=== PATIENT | male | born 1960 | race Caucasian/White ===

== ENCOUNTER 2019-03-27 13:46 | Emergency (ER) | payer OTHER, SELFPAY ==
[2019-03-27] MEDS ORDERED: Ibuprofen 800 MG TAB ONE (14:10)
--- NOTE | 2019-03-27 14:42 | RAD ---
Left wrist 2 views HISTORY: Left wrist injury. FINDINGS: Multiple oblique views are included on this exam. The true frontal and lateral evaluation o f the wrist is better seen on the hand exam performed at the same time. Small subcortical cyst is noted at the base of the ulnar styloid. No acute fracture, dislocation, or aggressive osseous erosions. IMPRESSION: No acute osseous abnormalities are demonstrated.
--- NOTE | 2019-03-27 15:01 | RAD ---
LEFT HAND 3 VIEWS: HISTORY: Left hand injury with swelling and pain. FINDINGS: There is soft tissue swelling, particularly dorsally at the hand, particularly the region of the meta carpals. No evidence for acute fracture or dislocation. Small probable exostosis of the radial aspe ct of the base of the proximal phalanx of the 4th finger which appears somewhat more prominent in siz e when compared to the 11/29/2007 study. No acute fracture or dislocation. IMPRESSION: Dorsal soft tissue swelling. No acute fracture or dislocation. Other findings as above. POS: EMELY
== END 2019-03-27 15:12 | disposition home or self-care (01) ==
LOC: NAV ERS 13:46
DX: S63.92XA Sprain of unspecified part of left wrist and hand, initial encounter (principal); F32.9 Major depressive disorder, single episode, unspecified; I10 Essential (primary) hypertension; W01.0XXA Fall on same level from slipping, tripping and stumbling without subsequent striking against object, initial encounter
CPT/HCPCS: 29125

== ENCOUNTER 2022-11-14 09:11 | Emergency (ER) | payer OTHER ==
[~2022-11-14 09:11] MED LIST: Iopamidol 370 76% 100 ML VIAL ONE
[2022-11-14 10:01] LABS: #Eosinphils 0.1 thou/uL (0.0-0.7); #Lymphocytes 1.3 thou/uL (1.20-3.40); #Monocytes 1.1 thou/uL (0.11-0.59); #Neutrophils 9.5 thou/uL (1.40-6.50); %Basophils 0.3 % (0.0-1.0); %Eosinophils 0.6 % (0.0-10.0); %Lymphocytes 10.5 % (21.0-51.0); %Neutrophils 79.6 % (42.0-75.0); Hematocrit 42.8 % (42.0-52.0); Hemoglobin 14.4 g/dL (14.0-18.0); Mean Corpuscular HGB CONC 33.6 g/dL (32.0-36.0); Mean Corpuscular Hemoglobin 32.7 pg (27.0-31.0); Mean Corpuscular Volume 97.5 fl (78.0-98.0); Platelet Count 216 10x3/uL (130-400); RBC Distribution Width 11.8 % (11.5-14.5); Red Blood Cell (RBC) Count 4.39 mill/uL (4.70-6.10); White Blood Cell (WBC) Count 11.9 10x3/uL (4.8-10.8)
[2022-11-14 10:11] LABS: Anion Gap 14 mmol/L (10-20); Calc. Creatinine Clearance 0 mL/min (70-130); Calcium 9.2 mg/dL (7.8-10.44); Carbon Dioxide 23 mmol/L (23-31); Chloride 107 mmol/L (98-107); Estimated GFR 59; Glucose 126 mg/dL (80-115); Potassium 3.8 mmol/L (3.5-5.1); Sodium 140 mmol/L (136-145)
[2022-11-14 15:59] LABS: BUN (Urea Nitrogen) 21 mg/dL (8.4-25.7)
== END 2022-11-14 11:28 | disposition home or self-care (01) ==
LOC: NAV ERS 09:11
DX: L08.9 Local infection of the skin and subcutaneous tissue, unspecified (principal); I10 Essential (primary) hypertension; M79.9 Soft tissue disorder, unspecified; R65.10 Systemic inflammatory response syndrome (SIRS) of non-infectious origin without acute organ dysfunction
CPT/HCPCS: 71260; 80048; 85025; Q9967